=== PATIENT | female | born 2000 | race Caucasian/White ===

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

== ENCOUNTER 2022-01-28 07:47 | Emergency (ER) | payer BC, OTHER, SELFPAY ==
--- NOTE | 2022-01-28 07:55 | XR_ITS ---
WS: [id number] PORTABLE CHEST HISTORY: dyspnea/cough COMPARISON: None available. Lungs are clear and well expanded. No pleural effusion or pneumothorax. Cardiac size: Normal. Mediastinum/Aorta: Normal mediastinum. No osseous abnormality seen. XR/XR chest 1V portable [id number] IMPRESSION: Unremarkable portable chest.
[2022-01-28 07:58] VITALS: BP 123/78; PULSE 80; RESP 16; TEMP 37.1; O2SAT 100; BMI 20.9
--- NOTE | 2022-01-28 08:19 | PC.NURSE ---
SEIZURE BED PADS PLACED. PHYSICIAN GAVE VERBAL ORDERS FOR BLOOD SUGAR CHECK. RESULTS OF 74. PHYSICIAN NOTIFIED. NO NEW ORDERS AT THIS TIME.
--- NOTE | 2022-01-28 08:22 | W.ED.GENADLT ---
HPI - General Adult General: Chief complaint: General Medical Stated complaint: sob Time Seen by Provider: 01/28/22 07:54 Source: patient Mode of arrival: wheelchair History of Present Illness: 21-year-old female comes in complaining of having a dry mouth feeling short of breath stating she thinks she will have a seizure. Evidently she states she has had 3 seizures in the last 3 years she sees a nurse practitioner who told her it was due to hypoglycemia. She is not on any antiseizure medication she has not had these events evaluated by a neurologist at this point. No recent change in medications she denies any recent illness cough cold fever sweats chills shortness of breath headache abdominal pain or chest pain. Relieving factors: none Exacerbating factors: none Associated symptoms: Reports short of breath; Deny chest pain, confusion, cough, diaphoresis, decreased appetite, dyspnea, fevers/chills, headache(s), malaise, nausea, rash, palpitations, seizures, syncope, vomiting or weakness Treatments prior to arrival: none Review of Systems Const: Denies: fever(s), chills, fatigue, malaise or diaphoresis ENMT: Denies: throat pain, ear or mastoid pain, nasal discharge or nasal congestion Card: Denies: chest pain, palpitations or syncope Resp: Denies: dyspnea GI: Denies: abdominal pain, nausea or vomiting : Denies: flank pain, difficulty voiding, dysuria, urinary frequency or urinary urgency Musc: Denies: neck pain or back pain Skin/Breast: Denies: rash Neuro: Denies: headache(s) or confusion PFSH ED PFSH: Medical History Allergic rhinitis Seizures Social History Smoking and tobacco status: never smoked Alcohol intake: never Female Reproductive History: Date of last menstrual period: 09/10/19 Physical Exam Const: COMMON NORMALS: no acute distress GENERAL APPEARANCE: cooperative and comfortable ORIENTATION/CONSCIOUSNESS: Yes awake, Yes oriented to person, Yes oriented to place and Yes oriented to time HENMT: COMMON NORMALS: normocephalic, atraumatic, hearing grossly normal bilaterally, external ears normal, EAC's normal, TM's normal bilaterally and Normal nasal mucous membranes and turbinates present HEAD & SCALP: normocephalic and atraumatic NOSE: Normal nasal mucous membranes and turbinates present EXTERNAL EAR: Yes external ears normal EXTERNAL AUDITORY CANAL: EAC's normal TYMPANIC MEMBRANE: TM's normal bilaterally Eye: COMMON NORMALS: Equal, round and reactive pupils present, EOMs intact bilaterally, conjunctivae normal and no scleral icterus CONJUNCTIVA: Yes conjunctivae normal PUPIL: Yes Equal, round and reactive pupils present Neck/C-Spine: COMMON NORMALS: no JVD Resp: COMMON NORMALS: normal respiratory effort, No retractions, No use of accessory muscles and clear to auscultation bilaterally AUSCULTATION: clear to auscultation bilaterally Cardio: COMMON NORMALS: no JVD, regular rate, regular rhythm and No murmurs present (Cardio) RATE: regular rate RHYTHM: regular rhythm GI: COMMON NORMALS: Soft to palpation and No hepatosplenomegaly present AUSCULTATION: Yes normoactive bowel sounds PALPATION: Yes Soft to palpation, No Tenderness to palpation present (GI), No Guarding due to palpation present (GI) and Yes No hepatosplenomegaly present Extremity: COMMON NORMALS: normal to inspection, capillary refill normal, no clubbing, cyanosis or edema, no calf tenderness and no pedal edema Neuro: SENSORIUM/ORIENTATION: Yes oriented to person, Yes oriented to place and Yes oriented to time Skin: COMMON NORMALS: no rashes or lesions noted GENERAL SKIN EXAM: no rashes or lesions noted Course Vital Signs: Vital signs: Vital Signs Temperature 98.7 F 01/28/22 07:58 Pulse Rate 61 01/28/22 08:35 Respiratory Rate 18 01/28/22 08:35 Blood Pressure 116/63 01/28/22 08:35 Pulse Oximetry 99 01/28/22 08:35 [facility] - General Adult Medical Decision Making No seizure activity while here. She is sensing that she will have 1 but has not actually had when she is not on any medication to never really had any confirmatory evaluation has not seen neurology to document the seizures. She states her nurse practitioner told her it was because she was hypoglycemic. Sugar here is essentially normal we will go ahead and discharge her home advised not to drive we will set her up for outpatient sleep deprived EEG and neurology consultation Medical Records I reviewed the patient's medical records. Lab Data I reviewed the patient's lab results. : 01/28/22 08:24 01/28/22 08:24 Radiology Impressions Chest X-Ray 01/28/22 07:55 IMPRESSION: Unremarkable portable chest. Laboratory Results WBC 5.1 10^3/uL (4.0-10.0) 01/28/22 08:24 RBC 4.50 10^6/uL (4.1-5.3) 01/28/22 08:24 Hgb 12.0 g/dL (11.5-15.3) 01/28/22 08:24 Hct 38.0 % (37.0-47.0) 01/28/22 08:24 MCV 84.4 fl (81-99) 01/28/22 08:24 MCH 26.7 pg (28.0-34.0) L 01/28/22 08:24 MCHC 31.6 g/dL (30.0-36.0) 01/28/22 08:24 RDW 14.4 % (12.1-15.1) 01/28/22 08:24 Plt Count 340 10^3/cmm (130-400) 01/28/22 08:24 MPV 10.5 fL (7.4-10.4) H 01/28/22 08:24 Neut % (Auto) 41.9 % 01/28/22 08:24 Lymph % (Auto) 46.2 % 01/28/22 08:24 [place] % (Auto) 7.6 % 01/28/22 08:24 Eos % (Auto) 3.1 % 01/28/22 08:24 Baso % (Auto) 1.0 % 01/28/22 08:24 Neut # (Auto) 2.14 10^3/uL (1.8-7.7) 01/28/22 08:24 Lymph # (Auto) 2.4 10^3/uL (0.8-4.8) 01/28/22 08:24 [place] # (Auto) 0.4 10^3/uL (0.2-0.9) 01/28/22 08:24 Eos # (Auto) 0.2 10^3/uL (0.0-0.8) 01/28/22 08:24 Baso # (Auto) 0.1 10^3/uL (0.0-0.1) 01/28/22 08:24 Nucleated RBC % (auto) 0 % 01/28/22 08:24 Nucleated RBCs # 0.0 /100WBC 01/28/22 08:24 Sodium 141 mmol/L (136-145) 01/28/22 08:24 Potassium 3.6 mmol/L (3.5-5.1) 01/28/22 08:24 Chloride 104 mmol/L (98-107) 01/28/22 08:24 Carbon Dioxide 27 mmol/L (22-29) 01/28/22 08:24 Anion Gap 13.6 (5-19) 01/28/22 08:24 BUN 5 mg/dL (6-20) L 01/28/22 08:24 Creatinine 0.8 mg/dL (0.5-0.9) 01/28/22 08:24 GFR Calculation 90.5 mL/min (90-130) 01/28/22 08:24 Glucose 79 mg/dL (65-115) 01/28/22 08:24 POC Glucose 74 mg/dL (70-110) 01/28/22 08:18 Calculated Osmolality 288 mOsm/kg (285-295) 01/28/22 08:24 Calcium 9.5 mg/dL (8.5-10.5) 01/28/22 08:24 HCG, Qual Negative (Negative) 01/28/22 08:24 Discharge Plan Discharge Patient Disposition: Home Clinical Impression: Seizures Condition: Stable Prescriptions: No Action fluticasone propionate 50 mcg/actuation spray,suspension 1 spray intranasal DAILY 0RF Rx Instructions: administer into each nostril Control PO 0RF Discharge Orders: Discharge ED (Routine); Ordered 01/28/22 Ordered By: Skip Ritchie Discharge Diet: Usual diet Discharge Activity: Limit activity as instructed Activity Restrictions/Additional Instructions: Case management make arrangements for you to have a sleep deprived EEG and referral to neurology. Recommend you do not drive until this work-up is completed. If you have a seizure return to the emergency room. Stand Alone Forms: Work/School Release Coding Level of Care Code ED Muffler Installer for Dina Fwd Exam Comprehensive
[2022-01-28 08:24] LABS: Glucose Point of Care 74 mg/dL (70-110)
[2022-01-28 08:35] VITALS: BP 116/63; PULSE 61; RESP 18; O2SAT 99
[2022-01-28 08:52] LABS: Basophils # 0.1 10^3/uL (0.0-0.1); Eosinophils # 0.2 10^3/uL (0.0-0.8); Eosinophils % 3.1 %; Lymphocytes # 2.4 10^3/uL (0.8-4.8); Lymphocytes % 46.2 %; Mean Corpuscular HGB Conc 31.6 g/dL (30.0-36.0); Mean Corpuscular Hemoglobin 26.7 pg (28.0-34.0); Mean Corpuscular Volume 84.4 fl (81-99); Mean Platelet Volume 10.5 fL (7.4-10.4); Monocytes # 0.4 10^3/uL (0.2-0.9); Monocytes % 7.6 %; Neutrophils # 2.14 10^3/uL (1.8-7.7); Neutrophils % 41.9 %; Nucleated Red Blood Cells % 0 %; Platelet Count 340 10^3/cmm (130-400); Red Cell Distribution Width 14.4 % (12.1-15.1); White Blood Count 5.1 10^3/uL (4.0-10.0)
[2022-01-28 09:10] LABS: HCG, Serum Qual Negative (Negative)
[2022-01-28 09:22] LABS: Anion Gap 13.6 (5-19); Blood Urea Nitrogen 5 mg/dL (6-20); Calcium 9.5 mg/dL (8.5-10.5); Carbon Dioxide 27 mmol/L (22-29); Chloride 104 mmol/L (98-107); Glomerular Filtration Rate 90.5 mL/min (90-130); Glucose 79 mg/dL (65-115); Osmolality Calculated 288 mOsm/kg (285-295); Potassium 3.6 mmol/L (3.5-5.1); Sodium 141 mmol/L (136-145)
--- NOTE | 2022-01-29 08:03 | DCPLANNER ---
Addendum entered by Shazia Will 03/21/22 08:48: Patients appointments were cancelled. Addendum entered by Shazia Will 02/15/22 13:49: Patient has a follow up appointment scheduled for Friday, March 04, [address] Rodriguez. Clinic will call patient with appointment information. Addendum entered by Shazia Will 01/30/22 14:03: Patient has an EEG scheduled for Saturday February 26, 2022 at 8:00. Neurology will call patient with appointment information. Original Note: branch store manager had message to schedule a follow up appointment for patient with neurology. branch store manager sent patients information to the front office staff at neurology. Patients information will be printed and reviewed. Clinic will call patient with appointment information. branch store manager also had message to schedule an outpatient sleep deprived EEG. branch store manager faxed signed order to neurology, clinic will call patient with appointment information.
== END 2022-01-28 10:38 | disposition home or self-care (01) ==
PROVIDERS: Emergency Provider Family Medicine
DX: R56.9 Unspecified convulsions (principal)
CPT/HCPCS: 36416; 71045; 80048; 82962; 84703; 85025; 99284

== ENCOUNTER → 2022-03-14 16:27 | Outpatient (BNVA) | payer BC, OTHER, SELFPAY | PROVIDERS: PCP Clinical Nurse Specialist Adult Health; Visit Provider Nurse Practitioner Family | DX: Z01.419 Encounter for gynecological examination (general) (routine) without abnormal findings (principal) | CPT/HCPCS: 87624 ==

== ENCOUNTER 2022-03-25 04:06 | Emergency (ER) | payer BC, OTHER, SELFPAY ==
[2022-03-25 04:21] VITALS: BP 118/75; PULSE 63; RESP 18; TEMP 36.8; O2SAT 98; BMI 19.8
[2022-03-25 04:24] VITALS: BP 110/67; PULSE 65; RESP 17; O2SAT 98
[2022-03-25] MEDS: dexamethasone 4 mg/mL INJ 8 MG IVP (05:15)
[2022-03-25] MEDS: fentaNYL 50 mcg/mL INJ 2mL 25 MCG IVP (05:16)
[2022-03-25] MEDS: ketorolac 30 mg/mL INJ 15 MG IVP (05:17)
[2022-03-25] MEDS: metoclopramide 5 mg/mL SDV 2 mL 10 MG IVP (05:18)
[2022-03-25 05:20] VITALS: BP 110/67; PULSE 69; RESP 18; O2SAT 93
--- NOTE | 2022-03-25 05:37 | PC.NURSE ---
patient reports feeling improved. dr lofton notified.
[2022-03-25 05:48] VITALS: PULSE 70; RESP 19; O2SAT 100
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
== END 2022-03-25 05:49 | disposition home or self-care (01) ==
PROVIDERS: Emergency Provider Emergency Medicine; PCP Clinical Nurse Specialist Adult Health
DX: G43.909 Migraine, unspecified, not intractable, without status migrainosus (principal)
CPT/HCPCS: 96374; 96375; 99284; J1100; J1885; J2765; J3010

== ENCOUNTER → 2022-03-27 07:49 | Outpatient (BNVA) | payer BC, SELFPAY | PROVIDERS: PCP Clinical Nurse Specialist Adult Health; Visit Provider Family Medicine | DX: Z20.822 Contact with and (suspected) exposure to COVID-19 (principal) | CPT/HCPCS: 87426 ==

== ENCOUNTER 2022-05-24 19:27 | Emergency (ER) | payer BC, OTHER, SELFPAY ==
[2022-05-24 20:18] VITALS: BP 121/79; PULSE 96; RESP 18; TEMP 36.7; O2SAT 100; BMI 20.5
[2022-05-24 22:37] LABS: Basophils # 0.1 10^3/uL (0.0-0.1); Basophils % 0.4 %; Eosinophils # 0.1 10^3/uL (0.0-0.8); Eosinophils % 0.5 %; Hematocrit 36.4 % (37.0-47.0); Hemoglobin 11.5 g/dL (11.5-15.3); Lymphocytes # 2.7 10^3/uL (0.8-4.8); Lymphocytes % 19.6 %; Mean Corpuscular HGB Conc 31.6 g/dL (30.0-36.0); Mean Corpuscular Hemoglobin 25.3 pg (28.0-34.0); Mean Corpuscular Volume 80.2 fl (81-99); Monocytes # 0.7 10^3/uL (0.2-0.9); Monocytes % 5.2 %; Neutrophils # 10.14 10^3/uL (1.8-7.7); Nucleated Red Blood Cells % 0 %; Platelet Count 298 10^3/cmm (130-400); Red Blood Count 4.54 10^6/uL (4.1-5.3); Red Cell Distribution Width 16.1 % (12.1-15.1); White Blood Count 13.7 10^3/uL (4.0-10.0)
[2022-05-24 23:09] LABS: Alanine Aminotransferase 12 U/L (0-33); Albumin Level 4.3 g/dL (3.5-5.2); Alkaline Phosphatase 77 U/L (35-105); Anion Gap 15.4 (5-19); Aspartate Amino Transferase 17 U/L (0-32); Blood Urea Nitrogen 5 mg/dL (6-20); Calcium 9.5 mg/dL (8.5-10.5); Carbon Dioxide 26 mmol/L (22-29); Chloride 100 mmol/L (98-107); Globulin 2.9 g/dL (1.3-4.6); Glomerular Filtration Rate 105.6 mL/min (90-130); Glucose 93 mg/dL (65-115); Osmolality Calculated 283 mOsm/kg (285-295); Potassium 3.4 mmol/L (3.5-5.1); Sodium 138 mmol/L (136-145); Thyroid Stimulating Hormone 1.21 uIU/mL (0.27-4.20); Total Bilirubin 0.2 mg/dL (0.15-1.2); Total Protein 7.2 g/dL (6.6-8.7)
--- NOTE | 2022-05-24 23:14 | CTR_ITS ---
PROCEDURE INFORMATION: Exam: CT Head Without Contrast Exam date and time: 05/25/2022 12:07 AM Age: 21 years old Clinical indication: Other: Seizure; Additional info: Seizure, fell and hit head TECHNIQUE: Imaging protocol: Computed tomography of the head without contrast. Radiation optimization: All CT scans at this facility use at least one of these dose optimization techniques: automated exposure control; mA and/or kV adjustment per patient size (includes targeted exams where dose is matched to clinical indication); or iterative reconstruction. COMPARISON: CT head wo con* [id number] 09/10/2019 9:16 PM RADIATION DOSE METRICS: Total DLP (mGy-cm): 1061.58 FINDINGS: Brain: Normal. No hemorrhage. Unremarkable white matter. No mass effect. Cerebral ventricles: No ventriculomegaly. Paranasal sinuses: Mild paranasal sinus disease. No fluid levels. Mastoid air cells: Visualized mastoid air cells are well aerated. Bones/joints: Unremarkable. No acute fracture. Soft tissues: Unremarkable. CT/CT head wo con* [id number] IMPRESSION: No acute intracranial hemorrhage, mass effect, or midline shift.
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
[2022-05-24 23:39] VITALS: O2SAT 99
[2022-05-24 23:40] VITALS: O2SAT 98
[2022-05-24 23:45] VITALS: O2SAT 96
[2022-05-24 23:50] VITALS: O2SAT 96
[2022-05-24 23:51] LABS: HCG, Serum Qual Negative (Negative)
[2022-05-24 23:55] VITALS: O2SAT 98
[2022-05-25] VITALS: O2SAT 98
[2022-05-25 00:05] VITALS: O2SAT 97
[2022-05-25 01:28] VITALS: BP 113/70; PULSE 78; RESP 17; TEMP 36.7; O2SAT 98
== END 2022-05-25 01:28 | disposition home or self-care (01) ==
PROVIDERS: Emergency Medicine; Emergency Provider Physician Assistant; PCP Clinical Nurse Specialist Adult Health
DX: R56.9 Unspecified convulsions (principal)
CPT/HCPCS: 36415; 70450; 80053; 84443; 84703; 85025; 99284

== ENCOUNTER 2022-10-29 08:01 | Outpatient (CLI) | payer BC, SELFPAY ==
--- NOTE | 2022-10-29 08:17 | MR_ITS ---
WS: [id number] MRI BRAIN WITH AND WITHOUT CONTRAST HISTORY: SEIZURES COMPARISON: CT 05/25/2022 TECHNIQUE: Multiplanar imaging performed through the brain with MultiHance 10 ml's IV. High-resolutio n imaging through the temporal lobes. No acute infarcts are seen. Rivero-white matter differentiation is well preserved. No microgyria or ena ygyria. No ependymal nodules. No susceptibility artifacts or prior lacunar infarcts. Ventricles and extra-axial spaces are normal. Clivus and pituitary gland are normal. Visualized posterior fossa and brainstem are also normal. Postcontrast images are negative for masses or vascular malformations. Dural venous sinuses are normal. Paranasal sinuses: Well aerated with no significant disease. Mastoid air cells: Normal. Calvarium and scalp: Normal. MR/MR head wo/w con [id number] IMPRESSION: 1. Normal MRI brain with contrast. 2. No masses or hemosiderin. Normal temporal lobes.
[2022-10-29] MEDS: gadobenate dimeglumine 20 mL vial IV (09:08)
== END 2022-10-29 08:02 | disposition home or self-care (01) ==
PROVIDERS: PCP Clinical Nurse Specialist Adult Health; Visit Provider Psychiatry & Neurology Neurology
DX: R56.9 Unspecified convulsions (principal)
CPT/HCPCS: 70553; A9577

== ENCOUNTER → 2023-04-14 13:14 | Outpatient (BNVA) | payer BC, SELFPAY | PROVIDERS: PCP Clinical Nurse Specialist Adult Health; Visit Provider Clinical Nurse Specialist Adult Health | DX: L65.9 Nonscarring hair loss, unspecified (principal); Z01.419 Encounter for gynecological examination (general) (routine) without abnormal findings | CPT/HCPCS: 84436; 84443; 84481 ==

== ENCOUNTER → 2023-07-17 09:38 | Outpatient (BNVA) | payer BC, SELFPAY | PROVIDERS: PCP Clinical Nurse Specialist Adult Health; Visit Provider Clinical Nurse Specialist Adult Health | DX: B34.9 Viral infection, unspecified (principal) | CPT/HCPCS: 87400 ==

== ENCOUNTER 2023-12-29 22:17 | Emergency (ER) | payer BC, SELFPAY ==
[2023-12-29 22:19] VITALS: BP 118/71; PULSE 74; RESP 16; TEMP 36.6; O2SAT 98
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
[2023-12-29] MEDS: bacitracin ointment Pkt 1 EACH TOPICAL (23:39)
[2023-12-30 00:19] VITALS: RESP 16
== END 2023-12-30 00:20 | disposition home or self-care (01) ==
PROVIDERS: Emergency Provider Physician Assistant; PCP Clinical Nurse Specialist Adult Health
DX: S00.452A Superficial foreign body of left ear, initial encounter (principal); W45.8XXA Other foreign body or object entering through skin, initial encounter
CPT/HCPCS: 99283

== ENCOUNTER → 2024-03-02 15:09 | Outpatient (BNVA) | payer BC, SELFPAY | PROVIDERS: PCP Clinical Nurse Specialist Adult Health; Visit Provider Clinical Nurse Specialist Adult Health | DX: R30.0 Dysuria (principal) | CPT/HCPCS: 81000 ==

== ENCOUNTER → 2024-03-03 15:44 | Outpatient (BNVA) | payer BC, SELFPAY | PROVIDERS: PCP Clinical Nurse Specialist Adult Health; Visit Provider Clinical Nurse Specialist Adult Health | DX: N30.01 Acute cystitis with hematuria (principal) | CPT/HCPCS: 87086 ==

== ENCOUNTER → 2024-07-22 13:38 | Outpatient (BNVA) | payer BC, SELFPAY | PROVIDERS: PCP Clinical Nurse Specialist Adult Health; Visit Provider Clinical Nurse Specialist Adult Health | DX: R63.5 Abnormal weight gain (principal) | CPT/HCPCS: 82533; 84403; 84439; 84443 ==

== ENCOUNTER → 2024-12-28 10:57 | Outpatient (BNVA) | payer BC, SELFPAY | PROVIDERS: PCP Clinical Nurse Specialist Adult Health; Visit Provider Clinical Nurse Specialist Adult Health | DX: N39.0 Urinary tract infection, site not specified (principal) | CPT/HCPCS: 81000 ==